=== PATIENT | female | born 1955 | race Caucasian/White ===

== ENCOUNTER 2024-02-25 13:29 | Outpatient (CLI) | payer BC | END 2024-02-25 13:30 | disposition home or self-care (01) | LOC: CSHMAMMO 13:29 | PROVIDERS: ATTEND Family Medicine Sports Medicine | DX: Z12.31 Encounter for screening mammogram for malignant neoplasm of breast (principal); Z98.890 Other specified postprocedural states | CPT/HCPCS: 77063; 77067 ==